=== PATIENT | female | born 1985 | race Asian ===

== ENCOUNTER 2021-07-26 08:18 | Day surgery (SDC) | payer SELFPAY ==
[~2021-07-26] VITALS: Ht 149.9 cm; Wt 57.2 kg
[2021-07-26 08:56] LABS: HCG,QUAL RESULT NEGATIVE (NEGATIVE)
[2021-07-26] MEDS ORDERED: ACETAMINOPHEN I.V. 1000 MG 100 ML IV ONE (10:04)
[2021-07-26] MEDS ORDERED: LABETALOL 100 MG/ 20ML VIAL IVP PRN (10:30)
[2021-07-26] MEDS ORDERED: MIDAZOLAM HCL 2 MG/2 ML VIAL (VERSED) IVP PRN (10:30)
[2021-07-26] MEDS ORDERED: LR 1,000 ML IV SCH (10:30)
[2021-07-26] MEDS ORDERED: hydrALAZINE HCL 20 MG/ML VIAL IVP PRN (10:30)
[2021-07-26] MEDS ORDERED: METOCLOPRAMIDE HCL 10 MG/2 ML VIAL IVP PRN (10:30)
[2021-07-26] MEDS ORDERED: MEPERIDINE HCL/PF 25 MG/ML DISP.SYRIN IVP PRN (10:30)
[2021-07-26] MEDS ORDERED: HYDROmorphone 1 MG/ML INJ. CARTRIDGE IVP PRN ×2 (10:30)
[2021-07-26 12:20] VITALS: BP_SYST 124
== END 2021-07-26 13:00 | disposition home or self-care (01) ==
LOC: SDS 08:18 → SMU 08:19 → SDS 13:00
PROVIDERS: ATTEND Otolaryngology
DX: J34.89 Other specified disorders of nose and nasal sinuses (principal); J34.2 Deviated nasal septum; D38.5 Neoplasm of uncertain behavior of other respiratory organs; Z20.822 Contact with and (suspected) exposure to COVID-19; Z79.899 Other long term (current) drug therapy
CPT/HCPCS: 30140; 30520; 31240; 36415 ×2; 84703; 87426; 88305; 88311; J0131; U0003; 87635-QW